=== PATIENT | female | born 1985 | race Caucasian/White ===

== ENCOUNTER 2016-11-27 15:14 | Emergency (ER) | payer OTHER, SELFPAY ==
[~2016-11-27] VITALS: Ht 165.1 cm; Wt 148.1 kg
[2016-11-27 18:52] VITALS: BP 140/92
== END 2016-11-27 18:54 | disposition home or self-care (01) ==
LOC: ED 18:40
DX: S50.311A Abrasion of right elbow, initial encounter (principal); V57.6XXA Passenger in pick-up truck or van injured in collision with fixed or stationary object in traffic accident, initial encounter; Y93.89 Activity, other specified; Y99.8 Other external cause status; Y92.89 Other specified places as the place of occurrence of the external cause
CPT/HCPCS: 76805

== ENCOUNTER 2016-11-27 19:02 | Observation (INO) | payer OTHER ==
[~2016-11-27] VITALS: Ht 165.1 cm; Wt 145.5 kg
== END 2016-11-27 23:15 | disposition home or self-care (01) ==
LOC: LDOP 19:02 → LDIP 21:55
PROVIDERS: ADMIT Specialist; ATTEND Specialist
DX: Z04.1 Encounter for examination and observation following transport accident (principal); Z67.90 Unspecified blood type, Rh positive; Z3A.26 26 weeks gestation of pregnancy; V44.6XXA Car passenger injured in collision with heavy transport vehicle or bus in traffic accident, initial encounter; Y93.89 Activity, other specified; Y92.89 Other specified places as the place of occurrence of the external cause; Y99.8 Other external cause status
CPT/HCPCS: 36415; 81003; 85025; G0378

== ENCOUNTER 2017-01-29 20:06 | Outpatient (CLI) | payer SELFPAY ==
[~2017-01-29] VITALS: Ht 165.1 cm; Wt 149.0 kg
[2017-01-29 21:25] VITALS: BP 125/67
[2017-01-29 21:41] LABS: AMNI OBC PASS; AMNISURE NEGATIVE (NEGATIVE)
== END 2017-01-29 22:52 | disposition home or self-care (01) ==
LOC: LDOP 20:06
PROVIDERS: ATTEND Obstetrics & Gynecology
DX: O42.113 Preterm premature rupture of membranes, onset of labor more than 24 hours following rupture, third trimester (principal); Z3A.35 35 weeks gestation of pregnancy
CPT/HCPCS: 59025; 81003; 84112; 87081; 99211; G0463

== ENCOUNTER 2017-02-13 13:09 | Outpatient (CLI) | payer SELFPAY ==
[~2017-02-13] VITALS: Ht 165.1 cm; Wt 145.4 kg
[2017-02-13 13:30] VITALS: BP 154/69
[2017-02-13] MEDS ORDERED: PREN-3 PO (13:35)
[2017-02-13 14:18] LABS: AMNI OBC PASS; AMNISURE NEGATIVE (NEGATIVE)
== END 2017-02-13 15:32 | disposition home or self-care (01) ==
LOC: LDOP 13:09
PROVIDERS: ATTEND Obstetrics & Gynecology
DX: O42.92 Full-term premature rupture of membranes, unspecified as to length of time between rupture and onset of labor (principal); Z3A.38 38 weeks gestation of pregnancy
CPT/HCPCS: 59025; 84112; 89060; 99211; G0463; Q0114

== ENCOUNTER 2017-02-15 17:23 | Outpatient (CLI) | payer OTHER ==
[~2017-02-15] VITALS: Ht 165.1 cm; Wt 145.5 kg
[~2017-02-15 17:23] MED LIST: PREN-3 PO
== END 2017-02-15 18:03 | disposition home or self-care (01) ==
LOC: LDOP 17:23
PROVIDERS: ATTEND Student in an Organized Health Care Education/Training Program
DX: O26.893 Other specified pregnancy related conditions, third trimester (principal); R10.9 Unspecified abdominal pain; Z3A.38 38 weeks gestation of pregnancy
CPT/HCPCS: 59025; 99211; G0463

== ENCOUNTER 2017-02-17 10:25 | Inpatient (IN) | payer OTHER ==
[~2017-02-17] VITALS: Ht 165.1 cm; Wt 145.5 kg
[2017-02-17] MEDS ORDERED: OXYTOCIN 30U/ 0.9% NaCL 500ML 500 ML IV PRN (10:31)
[2017-02-17] MEDS ORDERED: OXYTOCIN 30U/ 0.9% NaCL 500ML 500 ML IV ONE (10:31)
[2017-02-17] MEDS ORDERED: PLEASE ENTER HEIGHT AND WEIGHT MC SCH (11:00)
[2017-02-17] MEDS ORDERED: CALCIUM CARBONATE 500 MG TAB.CHEW PO PRN ×2 (11:00→19:30)
[2017-02-17] MEDS ORDERED: METOCLOPRAMIDE 5 MG/ML, 2ML IVPush PRN (11:00)
[2017-02-17] MEDS ORDERED: ONDANSETRON 2MG/ML, 2ML IVPush PRN ×2 (11:00→19:30)
[2017-02-17 11:02] VITALS: BP 133/78
[2017-02-17] MEDS: LACTATED RINGERS 1,000 ML IV SCH ×3 (11:02→18:33)
[2017-02-17 11:34] LABS: HEMATOCRIT 37.9 % (34.6-47.8); HEMOGLOBIN 12.6 g/dL (11.7-16.4); WHITE BLOOD COUNT 9.7 x10^3/uL (3.4-10)
[2017-02-17] MEDS ORDERED: FENTANYL PF 100 MCG/2ML ONE ×3 (11:43→13:15)
[2017-02-17] MEDS: FENTANYL PF 100 MCG/2ML IVPush PRN ×2 (11:47→12:50)
[2017-02-17] MEDS ORDERED: NEWBORN KIT ONE (11:57)
[2017-02-17] MEDS ORDERED: OXYTOCIN 30U/ 0.9% NaCL 500ML 500 ML ONE ×2 (12:14→19:29)
[2017-02-17] MEDS ORDERED: MISOPROSTOL 200 MCG TABLET ONE (12:15)
[2017-02-17] MEDS ORDERED: BUPIVACAINE 0.25% ONE (13:15)
[2017-02-17] MEDS ORDERED: FENTANYL/BUPIV./NS/PF 250 ML EPIDCONT ONE (13:15)
[2017-02-17] MEDS ORDERED: INUL1TAB4 PO (13:26)
[2017-02-17] MEDS ORDERED: MISOPROSTOL 200 MCG TABLET PR ONE (19:00)
[2017-02-17] MEDS ORDERED: FENTANYL/BUPIV./NS/PF 250 ML EPIDCONT SCH (19:08)
[2017-02-17] MEDS ORDERED: LACTATED RINGERS 1,000 ML IV SCH (19:08)
[2017-02-17] MEDS ORDERED: DOCUSATE 100 MG CAPSULE PO PRN (19:30)
[2017-02-17] MEDS ORDERED: EPHEDRINE 50 MG/ML, 1ML IVPush PRN (19:30)
[2017-02-17] MEDS ORDERED: LACTATED RINGERS 1,000 ML IVBOLUS PRN (19:30)
[2017-02-17] MEDS ORDERED: METHYLERGONOVINE 0.2 MG/ML IM PRN (19:30)
[2017-02-17] MEDS ORDERED: ONDANSETRON 2MG/ML, 2ML IV PRN (19:30)
[2017-02-17] MEDS ORDERED: MISOPROSTOL 200 MCG TABLET PR PRN (19:30)
[2017-02-17] MEDS ORDERED: ACETAMINOPHEN 325 MG TABLET PO PRN (19:30)
[2017-02-17] MEDS: OXYTOCIN 30U/ 0.9% NaCL 500ML 500 ML IV SCH (19:31)
[2017-02-17 21:00] VITALS: BP 104/66
[2017-02-17] MEDS ORDERED: DIPH,PERTUSS(ACELL),TET VAC/PF NC IM-VACC ONE (23:30)
[2017-02-18] VITALS: BP 104/67
[2017-02-18] MEDS: IBUPROFEN 600 MG TABLET PO PRN ×3 (00:07→13:38)
[2017-02-18 03:20] VITALS: BP 110/62
[2017-02-18] MEDS: HYDROcodone/APAP 5/325 TABLET PO PRN ×4 (04:44→18:27)
[2017-02-18] MEDS: OXYTOCIN 30U/ 0.9% NaCL 500ML 500 ML IV SCH ×2 (05:14→15:14)
[2017-02-18] MEDS ORDERED: DIPH,PERTUSS(ACELL),TET VAC/PF NC IM-VACC ONE (06:00)
[2017-02-18 07:06] LABS: HEMATOCRIT 31.7 % (34.6-47.8); HEMOGLOBIN 10.6 g/dL (11.7-16.4); WHITE BLOOD COUNT 12.8 x10^3/uL (3.4-10)
[2017-02-18] MEDS ORDERED: PRENATAL VIT/IRON/FA 1 EACH TABLET ONE (07:12)
[2017-02-18 07:25] VITALS: BP 102/67
[2017-02-18] MEDS ORDERED: PRENATAL VIT/IRON/FA 1 EACH TABLET PO SCH (09:00)
[2017-02-18 12:00] VITALS: BP 120/74
[2017-02-18] MEDS ORDERED: IBUP-1222 PO (13:19)
[2017-02-18] MEDS ORDERED: DOCU-131 PO (13:19)
[2017-02-18] MEDS ORDERED: FLU VACC QS2017-18 (36MOS+) UP/PF 0.5 ML IM-VACC ONE (14:30)
== END 2017-02-18 18:32 | disposition home or self-care (01) | DRG 775 ==
LOC: LDOP 10:25 → LDIP 10:27 → 2NW 20:46
PROVIDERS: ADMIT Obstetrics & Gynecology; ATTEND Obstetrics & Gynecology
PROC: 0HQ9XZZ Repair Perineum Skin, External Approach (ICD-10-PCS; principal; 2017-02-17)
PROC: 10E0XZZ Delivery of Products of Conception, External Approach (ICD-10-PCS; 2017-02-17)
PROC: 3E0S3BZ Introduction of Anesthetic Agent into Epidural Space, Percutaneous Approach (ICD-10-PCS; 2017-02-17)
PROC: 00HU33Z Insertion of Infusion Device into Spinal Canal, Percutaneous Approach (ICD-10-PCS; 2017-02-17)
DX: O69.81X0 Labor and delivery complicated by cord around neck, without compression, not applicable or unspecified (principal); E66.01 Morbid (severe) obesity due to excess calories; O99.214 Obesity complicating childbirth; O70.0 First degree perineal laceration during delivery; Z37.0 Single live birth; Z3A.38 38 weeks gestation of pregnancy; Z68.38 Body mass index [BMI] 38.0-38.9, adult
CPT/HCPCS: 36415; 85025; 86850; 86900; 90686; 90715; J3010; J3490; J2590; J7120